=== PATIENT | female | born 1960 ===

== ENCOUNTER 2021-06-25 09:22 | Day surgery (SDC) | payer OTHER ==
[~2021-06-25 09:22] MED LIST: ACID REDUCER20 M1 PO; GLIMEPIRIDE2 M1 PO; JANUMET XR 50-1 EAC1 PO; LOSARTAN-HCTZ1 EACH PO; SINGUL PO; TENORMIN25 MG PO
== END 2021-06-25 16:40 | disposition home or self-care (01) ==
LOC: CIR.AMB 09:22
PROVIDERS: ATTEND Orthopaedic Surgery
DX: M77.12 Lateral epicondylitis, left elbow (principal); Z20.822 Contact with and (suspected) exposure to COVID-19